=== PATIENT | male | born 1995 | race Caucasian/White ===

== ENCOUNTER 2023-09-19 19:10 | Emergency (ER) | payer OTHER ==
[~2023-09-19] VITALS: Ht 188 cm; Wt 127.0 kg
[2023-09-19] MEDS: ACETAMINOPHEN 500 MG TABLET PO ONE (23:06)
[2023-09-19] MEDS ORDERED: IBUP-2077 PO (23:08)
[2023-09-19 23:22] VITALS: BP 156/72; PULSE 87; RESP 16; O2SAT 100
== END 2023-09-20 00:08 | disposition home or self-care (01) ==
LOC: EDH 19:10
DX: S00.03XA Contusion of scalp, initial encounter (principal); G44.309 Post-traumatic headache, unspecified, not intractable; V89.2XXA Person injured in unspecified motor-vehicle accident, traffic, initial encounter; Y93.I9 Activity, other involving external motion; Y92.488 Other paved roadways as the place of occurrence of the external cause; Y99.8 Other external cause status
CPT/HCPCS: 70450